=== PATIENT | female | born 1995 | race Caucasian/White ===

== ENCOUNTER 2017-10-20 15:09 | Emergency (ER) | payer OTHER ==
[~2017-10-20] VITALS: Ht 162.6 cm; Wt 81.6 kg
== END 2017-10-20 18:48 | disposition home or self-care (01) ==
LOC: ER 15:09
DX: J06.9 Acute upper respiratory infection, unspecified (principal)

== ENCOUNTER 2017-12-19 11:46 | Emergency (ER) | payer OTHER ==
[~2017-12-19] VITALS: Ht 160 cm; Wt 76.7 kg
== END 2017-12-19 14:34 | disposition home or self-care (01) ==
LOC: ER 11:46
DX: J02.9 Acute pharyngitis, unspecified (principal)

== ENCOUNTER 2018-03-03 14:17 | Emergency (ER) | payer OTHER ==
[~2018-03-03] VITALS: Ht 160 cm; Wt 70.8 kg
== END 2018-03-03 17:41 | disposition home or self-care (01) ==
LOC: ER 14:17
DX: N93.8 Other specified abnormal uterine and vaginal bleeding (principal)

== ENCOUNTER 2018-07-21 14:10 | Emergency (ER) | payer OTHER ==
[~2018-07-21] VITALS: Ht 162.6 cm; Wt 71.7 kg
[2018-07-21] MEDS ORDERED: INTESTINEX680 M1 PO (22:54)
[2018-07-21] MEDS ORDERED: PEPCID AC20 MG PO (22:54)
[2018-07-21] MEDS ORDERED: LEVSIN/SL0.125 MG PO (22:54)
[2018-07-21] MEDS ORDERED: CIPRO500 MG PO (22:54)
== END 2018-07-21 23:17 | disposition home or self-care (01) ==
LOC: ER 14:10
DX: K52.9 Noninfective gastroenteritis and colitis, unspecified (principal); N39.0 Urinary tract infection, site not specified; R10.31 Right lower quadrant pain

== ENCOUNTER 2018-08-22 08:20 | Emergency (ER) | payer OTHER ==
[~2018-08-22] VITALS: Ht 162.6 cm; Wt 68.0 kg
[~2018-08-22 08:20] MED LIST: CIPRO500 MG PO; INTESTINEX680 M1 PO; LEVSIN/SL0.125 MG PO; PEPCID AC20 MG PO
== END 2018-08-22 13:15 | disposition home or self-care (01) ==
LOC: ER 08:20
DX: B34.9 Viral infection, unspecified (principal); K52.89 Other specified noninfective gastroenteritis and colitis; J11.1 Influenza due to unidentified influenza virus with other respiratory manifestations

== ENCOUNTER 2018-12-08 16:35 | Emergency (ER) | payer OTHER ==
[~2018-12-08] VITALS: Ht 162.6 cm; Wt 73.5 kg
== END 2018-12-08 20:31 | disposition home or self-care (01) ==
LOC: ER 16:35
DX: B34.9 Viral infection, unspecified (principal)

== ENCOUNTER 2019-06-28 07:49 | Emergency (ER) | payer OTHER ==
[~2019-06-28] VITALS: Ht 160 cm; Wt 84.4 kg
[2019-06-28] MEDS ORDERED: MUCINEX DM ER1 EAC1 PO (13:03)
[2019-06-28] MEDS ORDERED: ZITHROMAX500 MG PO (13:03)
[2019-06-28] MEDS ORDERED: INTESTINEX680 M1 PO (13:03)
[2019-06-28] MEDS ORDERED: IBUPROFEN600 MG PO (13:03)
== END 2019-06-28 13:33 | disposition home or self-care (01) ==
LOC: ER 07:49
DX: J06.9 Acute upper respiratory infection, unspecified (principal); K52.9 Noninfective gastroenteritis and colitis, unspecified; B96.0 Mycoplasma pneumoniae [M. pneumoniae] as the cause of diseases classified elsewhere

== ENCOUNTER 2020-09-27 14:59 | Emergency (ER) | payer OTHER ==
[~2020-09-27] VITALS: Ht 160 cm; Wt 87.1 kg
[~2020-09-27 14:59] MED LIST changes: +IBUPROFEN600 MG PO; +MUCINEX DM ER1 EAC1 PO; +ZITHROMAX500 MG PO
== END 2020-09-27 17:55 | disposition home or self-care (01) ==
LOC: ER 14:59
DX: A63.8 Other specified predominantly sexually transmitted diseases (principal)

== ENCOUNTER 2022-12-27 17:28 | Emergency (ER) | payer OTHER ==
[~2022-12-27] VITALS: Ht 157.5 cm; Wt 89.8 kg
== END 2022-12-27 23:32 | disposition home or self-care (01) ==
LOC: ER 17:28
DX: K52.89 Other specified noninfective gastroenteritis and colitis (principal)